=== PATIENT | male | born 1965 | race Caucasian/White ===

== ENCOUNTER 2019-01-16 23:55 | Emergency (ER) | payer OTHER ==
[2019-01-17 00:22] LABS: ABSOLUTE BASOPHILS # (AUTO) 0.1 10^3/uL (0.0-0.2); ABSOLUTE EOSINOPHILS # (AUTO) 0.2 10^3/uL (0.0-0.6); ABSOLUTE LYMPHOCYTES (AUTO) 2.3 10^3/uL (0.5-4.7); ABSOLUTE MONOCYTES (AUTO) 0.8 10^3/uL (0.1-1.4); ABSOLUTE NEUT (AUTO) 6.4 10^3/uL (1.7-8.2); BASOPHILS % (AUTO) 1.1 % (0-2); EOSINOPHILS % (AUTO) 1.6 % (0-6); HEMOGLOBIN 13.8 g/dL (13.5-17.0); LYMPHOCYTES % (AUTO) 23.2 % (13-45); MEAN CORPUSCULAR HEMOGLOBIN 34.8 pg (27.0-33.4); MEAN CORPUSCULAR HGB CONC 34.5 g/dL (32.0-36.0); MEAN CORPUSCULAR VOLUME 101 fl (80-97); MONOCYTES % (AUTO) 8.1 % (3-13); PLATELET COUNT 294 10^3/uL (150-450); RED BLOOD COUNT 3.96 10^6/uL (4.35-5.55); TOTAL CELLS COUNTED % (AUTO) 100 %; WHITE BLOOD COUNT 9.7 10^3/uL (4.0-10.5)
--- NOTE | 2019-01-17 00:28 | EKG REPORT ---
SEVERITY:- ABNORMAL ECG - SINUS RHYTHM INCOMPLETE RIGHT BUNDLE BRANCH BLOCK : Confirmed by: Leia Naik MD 17-Jan-2019 00:27:17
--- NOTE | 2019-01-17 00:34 | RADIOLOGY REPORT (SQ) ---
EXAM DESCRIPTION: XR CHEST 2 VIEWS COMPLETED DATE/TME: 01/16/2019 00:00 CLINICAL HISTORY: CP COMPARISON: None. FINDINGS: Frontal and lateral views of the chest. Cardiomediastinal silhouette: Normal size and contour. Lungs: No consolidation, pneumothorax, or pleural effusion. Leads overlie the chest. Bones: No acute osseous abnormality. Upper abdomen: No abnormality identified. IMPRESSION: 1. No acute pulmonary process identified.
[2019-01-17 00:41] LABS: ALBUMIN 3.9 g/dL (3.5-5.0); ALKALINE PHOSPHATASE 67 U/L (38-126); ANION GAP 10 (5-19); ASPARTATE AMINO TRANSFERASE 22 U/L (17-59); BILIRUBIN,DIRECT 0.3 mg/dL (0.0-0.4); BILIRUBIN,TOTAL 0.5 mg/dL (0.2-1.3); BLOOD UREA NITROGEN 9 mg/dL (7-20); CALCIUM 9.7 mg/dL (8.4-10.2); CARBON DIOXIDE 23 mmol/L (22-30); CHLORIDE 105 mmol/L (98-107); CREATINE KINASE 50 U/L (55-170); GLUCOSE 99 mg/dL (75-110); TOTAL PROTEIN 6.6 g/dL (6.3-8.2)
--- NOTE | 2019-01-17 00:46 | ER Document Report ---
ED Cardiac - General Chief Complaint: Chest Pain Stated Complaint: CHEST PAIN Time Seen by Provider: 01/17/19 00:45 Primary Care Provider: BETINA SHELTON [Primary Care Provider] - Follow up as needed Mode of Arrival: Ambulatory Information source: Patient Notes: HISTORY OF PRESENT ILLNESS: Patient is a 53-year-old male with no significant past medical history who presents with sudden onset sharp stabbing chest pain that began at rest. Patient reports it begins in the middle of the chest and radiates under the left breast, worse with deep inspiration, independent of exertion reports never having similar symptoms in the past. Location: Left chest Onset: Sudden prior to arrival Alleviation: None Provocation: Deep inspiration Quality: Sharp, stabbing Radiation: "It also goes into my back" Severity: Severe at worst, currently mild to moderate Timing: Sudden, persistent History of CAD: None Associated symptoms: Denies fevers or chills, no cough or congestion, shortness of breath, no swelling of extremities REVIEW OF SYSTEMS: CONSTITUTIONAL : Denies fever or chills, no sweats. Denies recent illness. EENT: Denies eye, ear, throat, or mouth pain or symptoms. Denies nasal or sinus congestion. CARDIOVASCULAR: Positive for chest pain. Denies swelling of the legs. RESPIRATORY: Denies cough, cold, or chest congestion. Denies shortness of breath or difficulty breathing. Denies wheezing. GASTROINTESTINAL: Denies abdominal pain. Denies nausea, vomiting, or diarrhea. Denies constipation. GENITOURINARY: Denies difficulty urinating, painful urination, burning, frequency, or blood in urine. MUSCULOSKELETAL: Denies neck or back pain or joint pain or swelling. SKIN: Denies rash or skin lesions. HEMATOLOGIC : Denies easy bruising or bleeding. LYMPHATIC: Denies swollen, enlarged glands. NEUROLOGICAL: Denies altered mental status or loss of consciousness. Denies headache. Denies weakness or paralysis or loss of use of either side. Denies problems with gait or speech. Denies sensory or motor loss. PSYCHIATRIC: Denies anxiety or stress or depression. All other systems reviewed and negative. PHYSICAL EXAMINATION: GENERAL: Well-appearing, well-nourished and in no acute distress. HEAD: Atraumatic, normocephalic. No scalp deformity, depression, or crepitance. EYES: Pupils are 3 mm and equal/round/reactive to light, extraocular movements intact, sclera anicteric, conjunctiva are normal. ENT: Nares patent bilaterally, oropharynx. Moist mucous membranes. No tonsil hypertrophy. NECK: Normal range of motion, supple without lymphadenopathy. LUNGS: Breath sounds present, equal, and clear to auscultation bilaterally. No wheezes, rales, or rhonchi. HEART: Regular rate and rhythm without murmurs, rubs, or gallops. 2+ peripheral pulses. Normal capillary refill. ABDOMEN: Soft, nontender, nondistended. Normoactive bowel sounds. No guarding, no rebound. No masses appreciated. BACK: Normal contour, no midline tenderness. Rectal exam deferred. GENITAL/PELVIC: Deferred. EXTREMITIES: Normal range of motion, no pitting or edema. No cyanosis. NEUROLOGICAL: No focal neurological deficits. Moves all extremities spontaneously and on command. PSYCH: Normal mood, normal affect. No suicidal thoughts/ideations. No homicidal thoughts/ideations. No hallucinations. SKIN: Warm, dry, normal turgor, no rashes or lesions noted. ASSESSMENT AND PLAN: This patient is a 53-year-old male who presents with sudden onset sharp chest p ain worse with inspiration. Patient has no risk factors for coronary disease or pulmonary embolism, however these are both possibilities. Is also possible this could be costochondritis versus pleurisy. 1. Will obtain 2 sets of cardiac enzymes, d-dimer, chest x-ray, and reassess after Toradol. 2. Will consider further work-up pending results. TRAVEL OUTSIDE OF THE [place] IN LAST 30 DAYS: No - HPI Patient complains to provider of: Chest pain Was the onset of pain: Sudden Is the pain a: New problem Chest pain location: Under breast Quality of pain: Severe, Sharp, Stabbing Chest pain radiation location: None Severity now: Moderate Severity at worst: Severe Pain level currently: 2 Chest pain precipitating factors: At Rest Cardiac risk factors: None Positive cardiac history: No Associated symptoms: None Exacerbated by: Deep breaths Relieved by: Nothing Similar symptoms previously: No Recently seen / treated by doctor: No - Related Data Allergies/Adverse Reactions: No Known Allergies Allergy (Unverified 01/17/19 00:13) Past Medical History - General Information source: Patient - Social History Smoking Status: Current Every Day Smoker Chew tobacco use (# tins/day): No Frequency of alcohol use: daily Drug Abuse: Marijuana Lives with: Alone Family History: Reviewed & Not Pertinent Patient has suicidal ideation: No Patient has homicidal ideation: No - Past Medical History Cardiac Medical History: Reports: None Pulmonary Medical History: Reports: None EENT Medical History: Reports: None Neurological Medical History: Reports: None Endocrine Medical History: Reports: None Renal/ Medical History: Reports: None Malignancy Medical History: Reports None GI Medical History: Reports: None Musculoskeletal Medical History: Reports None Skin Medical History: Reports None Psychiatric Medical History: Reports: Hx Depression Traumatic Medical History: Reports: None Infectious Medical History: Reports: None Surgical Hx: Negative Past Surgical History: Reports: None - Immunizations Immunizations up to date: Yes Hx Diphtheria, Pertussis, Tetanus Vaccination: Yes Review of Systems - Review of Systems Constitutional: No symptoms reported EENT: No symptoms reported Cardiovascular: See HPI, Chest pain Respiratory: No symptoms reported Gastrointestinal: No symptoms reported Genitourinary: No symptoms reported Male Genitourinary: No symptoms reported Musculoskeletal: No symptoms reported Skin: No symptoms reported Hematologic/Lymphatic: No symptoms reported Neurological/Psychological: No symptoms reported -: Yes All other systems reviewed and negative Physical Exam - Vital signs Vitals: Temp Pulse Resp BP Pulse Ox 97.9 F 73 13 111/91 H 98 01/17/19 00:02 01/17/19 00:02 01/17/19 00:02 01/17/19 00:02 01/17/19 00:02 Interpretation: Normal Course - Re-evaluation Re-evalutation: 01/17/19 05:08 Two sets of cardiac enzymes are negative, d-dimer is also negative. Chest x-ray is negative and labs are otherwise unremarkable. Will discharge the patient home with strict return precautions and follow-up with primary care. All results were explained to and discussed with the patient, and all questions addressed and answered. The patient voices both understanding and agreeing with the plan. - Vital Signs Vital signs: Temp Pulse Resp BP Pulse Ox 97.9 F 73 19 118/78 95 01/17/19 00:02 01/17/19 00:02 01/17/19 04:01 01/17/19 04:01 01/17/19 04:01 - Laboratory Result Diagrams: 01/16/19 00:00 01/16/19 00:00 Laboratory results interpreted by me: 01/16/19 01/16/19 00:00 00:00 RBC 3.96 L MCV 101 H MCH 34.8 H Creatine Kinase 50 L - Diagnostic Test Radiology reviewed: Image reviewed, Reports reviewed - EKG Interpretation by Me EKG shows normal: Sinus rhythm Rate: Normal Rhythm: NSR Rogers/QRS: RBBB Voltage: No: Increased voltage, Consistant with LVH, Decreased voltage, Through out, Limb leads P Waves: No: JOHN, LAE, Absent, AV Dissociation, Other Heart block present: No: 1st Degree, Mobitz 1, Mobitz 2, CHB (3rd degree block) When compared to previous EKG there are: Previous EKG unavailable Discharge - Discharge Clinical Impression: Chest pain Qualifiers: Chest pain type: unspecified Qualified Code(s): R07.9 - Chest pain, unspecified Condition: Good Disposition: HOME, SELF-CARE Instructions: Chest Pain of Unclear Cause ([facility]) Additional Instructions: You have been evaluated in the Emergency Department for chest pain. While here, you had blood work and chest x-ray that were normal and it is now safe to be discharged home. Please follow-up with your primary physician as instructed in one week to be rechecked. Return to the Emergency Department if you experience worsening pain, the inability to breathe, or any other concerning symptoms. Prescriptions: Diclofenac Sodium 75 mg PO BID #30 tablet. Referrals: [facility] [Primary Care Provider] - Follow up as needed Print Language: Persian
[2019-01-17 00:55] LABS: CREATINE KINASE MB < 0.22 ng/mL (<4.55); TROPONIN I < 0.012 ng/mL
[2019-01-17] MEDS ORDERED: KETOROLAC TROMETHAMINE INJ/PF 30 MG/1 ML SDV IV ONE (01:57)
[2019-01-17 05:31] VITALS: BP 112/69
== END 2019-01-17 05:31 | disposition home or self-care (01) ==
LOC: ER 23:55
DX: R07.9 Chest pain, unspecified (principal); F17.200 Nicotine dependence, unspecified, uncomplicated
CPT/HCPCS: 93005; 99285; 96374; 36415; 82553; 82550; 85025; 80053; 84484; 85379; 71046; 93010; J1885